=== PATIENT | male | born 1960 | race Caucasian/White ===

== ENCOUNTER 2021-11-29 10:47 | Emergency (ER) | payer OTHER ==
[2021-11-29 11:38] LABS: HEMOGLOBIN 15.5 gm/dl (14.0-17.5); RED BLOOD COUNT 5.16 M/UL (4.20-5.50); WHITE BLOOD COUNT 5.2 K/UL (4.5-11.0)
[2021-11-29 11:59] LABS: BUN/CREATININE RATIO 16 (0-10)
[2021-11-29] MEDS ORDERED: COMPAZINE10 MG PO (13:02)
== END 2021-11-29 13:31 | disposition home or self-care (01) ==
LOC: ER1 10:47
PROVIDERS: Emergency Medicine
DX: R51.9 Headache, unspecified (principal)
CPT/HCPCS: 71045; 80053; 83690; 84484; 85025; 93005; 99284